=== PATIENT | male | born 1995 | race Two or more races ===

== ENCOUNTER 2024-06-03 23:05 | Emergency (ER) | payer MEDICAID, SELFPAY ==
[2024-06-03 23:07] VITALS: BMI 27.4
[2024-06-03 23:18] VITALS: BP 112/69; PULSE 79; RESP 18; TEMP 36.8; O2SAT 98
--- NOTE | 2024-06-03 23:29 | EDNOTE_ITS ---
ED Male Genitalurinary RME/HPI General Chief complaint: Urogenital-Male Stated complaint: PENILE SWELLING Time Seen by Provider: 06/03/24 23:23 Arrival date/time: 06/03/24 23:05 29M with no significant PMH presents to ED with 1 day of numbness at the head of his penis. Patient denies dysuria/hematuria, discharge, swelling, pain, and concern for STD. Patient has been having more intercourse recently and has been trying new techniques. Patient also denies back pain, bowel/bladder incontinence, and saddles paresthesia. Limitations: no limitations Related Data Home Medications ?Medication ?Instructions ?Recorded ?Confirmed carbamazepine 200 mg tablet 2 tab PO BID 11/01/2110/19 Allergies Allergy/AdvReac Type Severity Reaction Status Date / Time ibuprofen Allergy Severe Difficulty Verified 06/03/24 23:06 Breathing Review of Systems Review of Systems Systems Reviewed: All systems reviewed, normal except as documented Constitutional Constitutional: Reports system reviewed and no additional complaints, except as documented, Denies fever(s) and Denies headache(s) ENT Ears, Nose, Mouth, and Throat: Denies disequilibrium and Denies headache(s) Cardiovascular Cardiovascular: Reports system reviewed and no additional complaints, except as documented, Denies chest pain and Denies dyspnea Respiratory Respiratory: Reports system reviewed and no additional complaints, except as documented, Denies cough and Denies dyspnea Gastrointestinal Gastrointestinal: Reports system reviewed and no additional complaints, except as documented, Denies abdominal pain, Denies nausea and Denies vomiting Musculoskeletal Musculoskeletal: Reports numbness Neurologic Neurologic: Reports system reviewed and no additional complaints, except as documented, Reports as per HPI, Denies confusion, Denies disequilibrium, Denies headache(s) and Reports numbness Psychiatric Psychiatric: Denies confusion Past Medical History Social History SMOKING STATUS: Never smoker ED Exam General Limitations: Present no limitations General appearance: Present alert and in no apparent distress Head Head exam: Present atraumatic Eye Eye exam: Present normal appearance, PERRL and EOMI ENT ENT exam: Present normal exam, normal oropharynx and mucous membranes moist Neck Neck exam: Present normal inspection, full ROM and trachea midline Chest Chest inspection: Present normal inspection and symmetric chest wall rise Respiratory Respiratory exam: Present normal lung sounds bilaterally Cardiovascular Cardiovascular exam: Present regular rate, normal rhythm and normal heart sounds Abdominal Exam Abdominal exam: Present soft and normal bowel sounds Extremities Exam Extremities exam: Present normal inspection and full ROM Back Exam Back exam: Present normal inspection and full ROM Neurological Exam Neurological exam: Present alert, oriented X3 and CN II-XII intact Psychiatric Psychiatric exam: Present normal affect and normal mood Skin Skin exam: Present warm, dry, intact and normal color Course Quality Measures none Vital Signs Vital signs: Vital Signs Temperature 98.2 F 06/03/24 23:18 Pulse Rate 79 06/03/24 23:18 Respiratory Rate 18 06/03/24 23:18 Blood Pressure 112/69 06/03/24 23:18 Pulse Oximetry (%) 98 06/03/24 23:18 Oxygen Delivery Method Room Air 06/03/24 23:18 O2 at 98% on RA and WNLs Urogenital - Male MDM Narrative MDM Narrative:: 29M with no significant PMH presents to ED with 1 day of numbness at the head of his penis. Patient denies dysuria/hematuria, discharge, swelling, pain, and concern for STD. Patient has been having more intercourse recently and has been trying new techniques. Patient also denies back pain, bowel/bladder inconti nence, and saddles paresthesia. Physical exam with fire loss prevention engineer reveals normal external genital exam. Normal color. No swelling or tenderness. Patient is afebrile, calm, and alert. Likely irritation from overuse. Religious Leader given. Patient data External records reviewed:: [facility] previous records Clinical information provided by:: patient Social determinants that could affect healthcare access:: none Patient has the following chronic illnesses:: none How is presenting disease/condition affected by chronic disease/condition?: no chronic disease Evaluation data The following diagnostics were reviewed and interpreted by me:: other (specify) (none) Lab and/or radiology exams considered but not ordered:: not ordered Interpretation Summary: n/a Medications / Prescriptions Medications or Prescriptions considered but not ordered:: not ordered Medication administrations:: n/a Consultations Consultation(s) initiated? (list below): No Diagnosis Urogenital Male Differential Diagnosis: urinary tract infection, priapism, urethritis, epididymitis, genital herpes simplex, prostatitis, acute retention of urine, inguinal hernia and other (normal external genitalia exam) Most likely diagnosis given after review of the tests above:: normal external genitalia exam Admission Indicated Admission indicated?: not indicated Admission Request Was there a request for admission?: No Disposition Plan Disposition Plan: Discharge Discharge Attestation Discharge Attestation: The patient and all family members were given an opportunity to ask questions and understood the discharge instructions. Discharge instructions specifically effects, indications for sooner follow up or return to the emergency department, and the expected course of current diagnosis. Patient condition: Stable Discharge Plan Plan Patient Disposition: HOME (Self Care) Disposition Comment: Stable Prescriptions/Referrals Prescriptions/Med Rec: No Action carbamazepine 200 mg tablet 2 tab PO BID Patient Comments: take 2 and 1/2 tablets by mouth every morning and 2 tablets every evening Problem List Clinical Impression: Normal external genitalia exam Patient/Caregiver Discharge Instructions Additional Instructions: Please follow-up with PCP within 24-48 hours and return immediately if symptoms worsen. Refrain from intercourse for a few days. Make sure symptoms are getting better. Red flags: skin color change, bowel/bladder incontinence, blood in urine, and fevers/chills. Print Language: Slovenian Stand Alone Forms: Patient Portal Info Letter JOSE/ULI Supervising Physician JOSE/ULI Supervising Physician: Dr. Krishna
== END 2024-06-03 23:28 | disposition home or self-care (01) ==
LOC: SERX 23:30
PROVIDERS: Emergency Provider Emergency Medicine
DX: N48.89 Other specified disorders of penis (principal)
CPT/HCPCS: 99281